=== PATIENT | male | born 1955 | race Caucasian/White ===

== ENCOUNTER 2016-10-15 07:41 | Observation (INO) | payer MEDICAID ==
[~2016-10-15] VITALS: Ht 180.3 cm; Wt 107.4 kg
[~2016-10-15 07:41] MED LIST: ENOX300V SQ; HYDR-3240 PO; INSU100I29 SQ-INSULIN; LISI-170 PO; METF500T PO; WARF5TAB7 PO
[2016-10-15] MEDS ORDERED: ASPI325T80 PO (08:16)
[2016-10-15] MEDS ORDERED: INSU100V8 SQ (08:16)
[2016-10-15] MEDS ORDERED: METO25TA35 PO (08:16)
[2016-10-15] MEDS ORDERED: ATOR40TA PO (08:16)
[2016-10-15] MEDS ORDERED: SODIUM CHLORIDE FLUSH 10ML SYR IVF ONE (09:00)
[2016-10-15] MEDS ORDERED: ONDANSETRON 2MG/ML, 2ML IVPush ONE (09:00)
[2016-10-15] MEDS ORDERED: ASPIRIN 81 MG TABLET CHEW PO ONE (09:00)
[2016-10-15] MEDS ORDERED: SODIUM CHLORIDE 0.9% 1,000ML IVBOLUS ONE (09:00)
[2016-10-15] MEDS ORDERED: MORPHINE SULFATE 4 MG/ML, 1ML IVPush PRN ×2 (09:00→12:00)
[2016-10-15 09:01] LABS: HEMOGLOBIN 12.8 g/dL (13.7-18.0)
[2016-10-15] MEDS ORDERED: MORPHINE SULFATE 4 MG/ML, 1ML ONE (09:01)
[2016-10-15] MEDS ORDERED: ONDANSETRON 2MG/ML, 2ML ONE (09:02)
[2016-10-15] MEDS ORDERED: ASPIRIN 81 MG TABLET CHEW ONE (09:02)
[2016-10-15 09:14] LABS: ASPARTATE AMINO TRANSFERASE 17 U/L (15-37); BLOOD UREA NITROGEN 27 mg/dL (7-18)
[2016-10-15 09:28] LABS: IS PT STATUS REG ER OR PRE ER? YES
[2016-10-15] MEDS ORDERED: ENALAPRILAT 1.25 MG/ML, 2ML IVPush PRN (12:00)
[2016-10-15] MEDS ORDERED: LABETALOL 20 MG/4 ML IV PRN (12:00)
[2016-10-15] MEDS ORDERED: ONDANSETRON ODT 4 MG PO PRN (12:00)
[2016-10-15] MEDS ORDERED: BISACODYL 10 MG SUPP PR PRN (12:00)
[2016-10-15] MEDS ORDERED: NITROGLYCERIN 0.4 MG BOTTLE (25 TABS) SL PRN (12:00)
[2016-10-15] MEDS ORDERED: LISINOPRIL 5 MG TABLET PO ONE ×2 (12:00→16:00)
[2016-10-15] MEDS ORDERED: POLYETHYLENE GLYCOL 17 GM PACKET PO PRN (12:00)
[2016-10-15] MEDS ORDERED: NICOTINE 21 MG/24 HR PATCH.TD24 ONE (12:05)
[2016-10-15] MEDS ORDERED: HEPARIN 5,000 UNITS/ML, 1ML ONE (12:05)
[2016-10-15 14:51] VITALS: BP 119/71
[2016-10-15 15:17] LABS: IS PT STATUS REG ER OR PRE ER? NO
[2016-10-15] MEDS: NICOTINE 21 MG/24 HR PATCH.TD24 TD SCH (15:47)
[2016-10-15] MEDS: HEPARIN 5,000 UNITS/ML, 1ML SQ SCH ×2 (15:47→21:49)
[2016-10-15] MEDS: INSULIN REGULAR 100 UNITS/ML, 3ML VIAL SQ-INSULIN SCH ×2 (16:00→21:00)
[2016-10-15 18:55] VITALS: BP 109/62
[2016-10-15] MEDS ORDERED: INSULIN DETEMIR 100 UNITS/ML, PEN SQ-INSULIN SCH ×2 (21:00)
[2016-10-15] MEDS ORDERED: ATORVASTATIN 40 MG TABLET PO SCH (21:00)
[2016-10-15 21:21] LABS: IS PT STATUS REG ER OR PRE ER? NO
[2016-10-15] MEDS: ACETAMINOPHEN 325 MG TABLET PO PRN (21:49)
[2016-10-15] MEDS: METOPROLOL TARTRATE 25 MG TABLET PO SCH (21:49)
[2016-10-16 01:52] VITALS: BP 113/64
[2016-10-16] MEDS ORDERED: ASPIRIN 325 MG TABLET EC PO SCH (06:00)
[2016-10-16] MEDS ORDERED: PNEUMOCOCCAL 23 VACCINE IM-VACC ONE (06:00)
[2016-10-16] MEDS: HEPARIN 5,000 UNITS/ML, 1ML SQ SCH ×2 (06:27→13:22)
[2016-10-16] MEDS: INSULIN REGULAR 100 UNITS/ML, 3ML VIAL SQ-INSULIN SCH ×2 (07:00→11:00)
[2016-10-16 07:48] VITALS: BP 103/62
[2016-10-16] MEDS: METOPROLOL TARTRATE 25 MG TABLET PO SCH (07:50)
[2016-10-16] MEDS: ACETAMINOPHEN 325 MG TABLET PO PRN (07:55)
[2016-10-16] MEDS: NICOTINE 21 MG/24 HR PATCH.TD24 TD SCH (12:00)
== END 2016-10-16 14:28 | disposition home or self-care (01) ==
LOC: ED 08:51 → EDIP 11:33 → 5SO 13:13
PROVIDERS: ADMIT Family Medicine; ATTEND Family Medicine
DX: R07.9 Chest pain, unspecified (principal); R06.02 Shortness of breath; M54.2 Cervicalgia; E11.9 Type 2 diabetes mellitus without complications; I10 Essential (primary) hypertension; I25.2 Old myocardial infarction; I25.10 Atherosclerotic heart disease of native coronary artery without angina pectoris; Z79.4 Long term (current) use of insulin; F17.200 Nicotine dependence, unspecified, uncomplicated; F19.20 Other psychoactive substance dependence, uncomplicated; Z86.718 Personal history of other venous thrombosis and embolism; Z95.5 Presence of coronary angioplasty implant and graft; Z23 Encounter for immunization
CPT/HCPCS: 36415; 71010; 80053; 82962; 84484; 85025; 85379; 90471; 90732; 93005; 96372; 96374; 96375; 99285; G0378; J1644; J1815; J2405; J7030

== ENCOUNTER → 2020-11-05 | Outpatient (CLI) | payer MEDICARE, MEDICAID ==
[~2020-11-05] MED LIST changes: +APIX5TAB PO; +ASPI325T80 PO; +ASPI81TA45 PO; +ATOR40TA PO; +HYDR-2214 PO; -HYDR-3240 PO; +INSU100V8 SQ; +LOSA25TA25 PO; +METO25TA35 PO; +NICO-486 TD; +TRAM50TA2 PO; +WARF-36 PO; -WARF5TAB7 PO
== END | disposition home or self-care (01) ==
LOC: CFH 10:43
PROVIDERS: ATTEND Family Medicine
DX: R91.1 Solitary pulmonary nodule (principal); I25.10 Atherosclerotic heart disease of native coronary artery without angina pectoris
CPT/HCPCS: 71250